=== PATIENT | female | born 1945 | race Caucasian/White ===

== ENCOUNTER 2018-09-20 09:46 | Inpatient (IN) | payer MEDICARE, OTHER ==
[2018-09-20] MEDS ORDERED: Sodium Chloride 0.9% 10 ML Syringe FLUSH PRN (10:23)
--- NOTE | 2018-09-20 10:27 | EDM.PDOC ---
ED HPI GENERAL MEDICAL PROBLEM - General Chief Complaint: Lower Extremity Injury/Pain Stated Complaint: LT LEG SWOLLEN Time Seen by Provider: 09/20/18 10:00 Source of Information: Reports: Patient History Limitations: Reports: No Limitations - History of Present Illness INITIAL COMMENTS - FREE TEXT/NARRATIVE: Patient is a 73-year-old female who presents the ED complaining of left leg swelling. Patient states she's noticed a swelling over the past few days. Has had some intermittent pain to the left calf. No recent trauma that precipitated this. She does carry a history of blood clots and is concerned she has a DVT. Last incident was between 3 and 5 years ago. Patient was admitted to the hospital for 3 days and bridged with Lovenox until warfarin level became therapeutic. She was on warfarin for one year and then was discontinued. States she did fall the first part of September but notes there is no residual discomfort. Denies any pain or tenderness to her pelvis or hip region. No pain to the left upper thigh, knee, or any bony tenderness to the lower extremity. She denies any chest pain, hemoptysis, shortness of breath. PMH: Parkinson's, macular degeneration, and hypertension. Current medications see list. Left Lower Leg Pain Score (Numeric/FACES): 5 - Related Data Allergies Allergy/AdvReac Type Severity Reaction Status Date / Time No Known Allergies Allergy Verified 09/20/18 09:55 Home Meds: Home Meds Carbidopa/Levodopa [Carbidopa-Levodopa 25-250] 10 - 100 mg PO Q4HR 01/07/16 [ History] Metoprolol Tartrate 25 mg PO DAILY 01/07/16 [History] amLODIPine [Norvasc] 10 mg PO DAILY 01/07/16 [History] rOPINIRole HCl [Ropinirole HCl] 0.5 mg PO BEDTIME 01/07/16 [History] Acetaminophen/Diphenhydramine [Tylenol Pm Ex-Strength Caplet] 25 - 500 mg PO BEDTIME 09/20/18 [History] Benztropine [Cogentin] 0.5 mg PO DAILY 09/20/18 [History] Cholecalciferol (Vitamin D3) [D3-2000] 2,000 units PO DAILY 09/20/18 [History] Cyanocobalamin (Vitamin B12) [Vitamin B12] 1 tab PO DAILY 09/20/18 [History] Dextran 70/Hypromellose [Artificial Tears] 1 drop OP Q4HR 09/20/18 [History] Glucosamine/D3/Boswellia Latrice [Osteo Bi-Flex Caplet] 1 tab PO DAILY 09/20/18 [ History] Multivitamin [Multivitamins] 1 tab PO DAILY 09/20/18 [History] [place]-3/DHA/Epa/Fish Oil [[place]-3 Fish Oil 1,000 MG Sfgl] 1,000 mg PO DAILY [History] Selegiline [Emsam] 5 mg PO BID 09/20/18 [History] Ubidecarenone [Co Q10] 60 mg PO DAILY 09/20/18 [History] Past Medical History HEENT History: Reports: Impaired Vision, Macular Degeneration Cardiovascular History: Reports: Hypertension Neurological History: Reports: Parkinson's - Past Surgical History Musculoskeletal Surgical History: Reports: Shoulder Surgery Social & Family History - Tobacco Use Smoking Status *Q: Former Smoker Used Tobacco, but Quit: Yes Month/Year Tobacco Last Used: 05/1989 - Caffeine Use Caffeine Use: Reports: None - Recreational Drug Use Recreational Drug Use: No Review of Systems - Review of Systems Review Of Systems: ROS reveals no pertinent complaints other than HPI. ED EXAM, GENERAL - Physical Exam Exam: See Below Exam Limited By: No Limitations General Appearance: Alert, WD/WN, No Apparent Distress Ears: Hearing Grossly Normal Nose: Normal Inspection Throat/Mouth: Normal Voice, No Airway Compromise Head: Atraumatic, Normocephalic Neck: Normal Inspection, Supple Respiratory/Chest: No Respiratory Distress, Lungs Clear, Normal Breath Sounds, No Accessory Muscle Use, Chest Non-Tender Cardiovascular: Normal Peripheral Pulses, Regular Rate, Rhythm, No Murmur ( obvious) Peripheral Pulses: 2+: Radial (L), Radial (R), Posterior Tibial (L), Posterior Tibial (R) GI/Abdominal: Normal Bowel Sounds, Soft, Non-Tender, No Organomegaly, No Distention Extremities: Other (Left leg is swollen in comparison to the right encompassing most of the leg. Posterior tibialis pulses intact. Difficult time palpating the dorsalis pedis and popliteal. Femoral pulses are intact. Skin is pink warm and dry. No pain with palpation of the extremity.) Neurological: Alert, Oriented, CN II-XII Intact, No Motor/Sensory Deficits Psychiatric: Normal Affect, Normal Mood Skin Exam: Warm, Dry, Intact, Normal Color, No Rash Course - Vital Signs Last Recorded V/S: Last Vital Signs Temp 97.0 F 09/20/18 09:55 Pulse 72 09/20/18 09:55 Resp 20 09/20/18 09:55 BP 99/87 09/20/18 09:55 Pulse Ox 97 09/20/18 09:55 - Orders/Labs/Meds Orders: Active Orders 24 hr Category Date Time Status Sodium Chloride 0.9% [Saline Flush] Med 09/20/18 10:23 Active 10 ml FLUSH ASDIRECTED PRN Peripheral IV Insertion Adult [OM.PC] Routine Oth 09/20/18 10:23 Ordered Medication Orders Amlodipine Besylate (Norvasc) 10 mg PO DAILY KARLEE Benztropine Mesylate (Cogentin) 0.5 mg PO DAILY KARLEE Carbidopa/Levodopa (Sinemet 25-250 Mg) tab PO Q4HR KARLEE Metoprolol Tartrate (Lopressor) 25 mg PO DAILY KARLEE Non-Formulary Medication (Multivitamin [Multivitamins]) 1 tab PO DAILY KARLEE Non-Formulary Medication (Ropinirole Hcl) 0.5 mg PO BEDTIME KARLEE Non-Formulary Medication (Selegiline [Emsam]) 5 mg PO BID KARLEE Non-Formulary Medication (Ubidecarenone [Co Q10]) 60 mg PO DAILY KARLEE Sodium Chloride (Saline Flush) 10 ml FLUSH ASDIRECTED PRN PRN Reason: Keep Vein Open Last Admin: 09/20/18 12:42 Dose: 10 ml Warfarin Sodium (Coumadin) 10 mg PO ONETIME ONE Stop: 09/20/18 12:42 Labs: Laboratory Tests 09/20/18 09/20/18 09/20/18 Range/Units 11:10 11:10 11:10 WBC 7.39 (3.98-10.04) K/mm3 RBC 3.83 L (3.98-5.22) M/mm3 Hgb 13.8 (11.2-15.7) gm/L Hct 38.8 (34.1-44.9) % MCV 101.3 H (79.4-94.8) fl MCH 36.0 H (25.6-32.2) pg MCHC 35.6 H (32.2-35.5) g/dl RDW Std Deviation 43.5 (36.4-46.3) fL Plt Count 213 (182-369) K/mm3 MPV 8.9 L (9.4-12.3) fl Neutrophils % (Manual) 70 H (40-60) % Band Neutrophils % 0 (0-10) % Lymphocytes % (Manual) 11 L (20-40) % Atypical Lymphs % 0 % Monocytes % (Manual) 16 H (2-10) % Eosinophils % (Manual) 3 (0.7-5.8) % Basophils % (Manual) 0 L (0.1-1.2) Platelet Estimate Adequate Macrocytosis 3+ marked RBC Morph Comment Not Reportable PT 10.0 (9.5-12.1) SECONDS INR < 0.93 APTT 27 (24-31) SECONDS Sodium 138 (136-145) mEq/L Potassium 4.1 (3.5-5.1) mEq/L Chloride 102 (98-107) mEq/L Carbon Dioxide 26 (21-32) mEq/L Anion Gap 14.1 (5-15) BUN 15 (7-18) mg/dL Creatinine 0.7 (0.55-1.02) mg/dL Est Cr Clr Drug Dosing 55.77 mL/min Estimated GFR (MDRD) > 60 (>60) mL/min BUN/Creatinine Ratio 21.4 H (14-18) Glucose 97 (83-115) mg/dL Calcium 9.4 (8.5-10.1) mg/dL Total Bilirubin 0.7 (0.2-1.0) mg/dL AST 16 (15-37) U/L ALT 16 (14-59) U/L Alkaline Phosphatase 80 (46-116) U/L C-Reactive Protein 1.7 H* (<1.0) mg/dL Total Protein 7.1 (6.4-8.2) g/dl Albumin 3.7 (3.4-5.0) g/dl Globulin 3.4 gm/dL Albumin/Globulin Ratio 1.1 (1-2) Meds: Medications Generic Name Dose Route Start Last Admin Trade Name Freq PRN Reason Stop Dose Admin Amlodipine Besylate 10 mg 09/21/18 09:00 Norvasc PO DAILY KARLEE Benztropine Mesylate 0.5 mg 09/21/18 09:00 Cogentin PO DAILY KARLEE Carbidopa/Levodopa tab 09/20/18 13:00 Sinemet 25-250 Mg PO Q4HR KARLEE Metoprolol Tartrate 25 mg 09/21/18 09:00 Lopressor PO DAILY KARLEE Non-Formulary Medication 1 tab 09/21/18 09:00 Multivitamin [Multivitamins] PO DAILY KARLEE Non-Formulary Medication 0.5 mg 09/20/18 21:00 Ropinirole Hcl PO BEDTIME KARLEE Non-Formulary Medication 5 mg 09/20/18 21:00 Selegiline [Emsam] PO BID KARLEE Non-Formulary Medication 60 mg 09/21/18 09:00 Ubidecarenone [Co Q10] PO DAILY KARLEE Sodium Chloride 10 ml 09/20/18 10:23 09/20/18 12:42 Saline Flush FLUSH 10 ml ASDIRECTED PRN Administration Keep Vein Open Warfarin Sodium 10 mg 09/20/18 12:41 Coumadin PO 09/20/18 12:42 ONETIME ONE Discontinued Medications Generic Name Dose Route Start Last Admin Trade Name Freq PRN Reason Stop Dose Admin Enoxaparin Sodium 60 mg 09/20/18 12:15 09/20/18 12:37 Lovenox SUBCUT 09/20/18 12:16 60 mg ONETIME ONE Administration - Re-Assessments/Exams Free Text/Narrative Re-Assessment/Exam: Vital signs are stable. Blood pressure 99/87, heart rate 72, O2 sats 97%. On examination patient does have some noticeable swelling to the left leg in comparison to the right. Minimal discomfort with palpation. Posterior tibialis pulses are intact. Skin is pink warm and dry. Initial labs and studies will include: CBC, chem 14, CRP, coag studies, and ultrasound of the left lower extremity. Ultrasound of the left lower extremity revealed extensive deep venous thrombosis within the left lower extremity. I did share the results of the ultrasound with the patient. I discussed treatment options. This would include the NOAC's and warfarin. Patient opted to be placed on warfarin since this can be reversed with vitamin K. She is concerned that with her Parkinson's and the history of frequent falls that she may have complications with the bleeding. I did advise her that there is a product called K-Centra that they can reverse the NOAC's. Patient voiced her understanding but requested placed on warfarin. I will order Lovenox 1 mg/kg. Will seek admission to the hospital. [address] Patel complex care nurse practitioner hospitalist and he has agreed to admit the patient. Departure - Departure Time of Disposition: 12:21 Disposition: Home, Self-Care 01 Condition: Good Clinical Impression: DVT (deep venous thrombosis) Qualifiers: DVT location: lower extremity Affected thrombotic vein of extremity: unspecified vein of extremity Chronicity: acute Laterality: left Qualified Code( s): I82.402 - Acute embolism and thrombosis of unspecified deep veins of left lower extremity - Discharge Information - My Orders Last 24 Hours: My Active Orders 09/20/18 10:23 Sodium Chloride 0.9% [Saline Flush] 10 ml FLUSH ASDIRECTED PRN Peripheral IV Insertion Adult [OM.PC] Routine - Assessment/Plan Last 24 Hours: My Active Orders 09/20/18 10:23 Sodium Chloride 0.9% [Saline Flush] 10 ml FLUSH ASDIRECTED PRN Peripheral IV Insertion Adult [OM.PC] Routine
--- NOTE | 2018-09-20 11:57 | US ---
Left lower extremity deep venous ultrasound: Duplex and color flow imaging was obtained of the left common femoral, proximal greater saphenous, superficial femoral, popliteal, posterior tibial and peroneal veins. Right common femoral vein was also evaluated. Left common femoral, superficial femoral, popliteal, posterior tibial and peroneal veins shows diffuse occluding thrombus. Right common femoral vein is patent. There is slight thrombus within the distal greater saphenous vein. Impression: 1. Extensive deep venous thrombosis within the left lower extremity. Diagnostic code #5
[2018-09-20] MEDS ORDERED: Enoxaparin 60 MG/0.6 ML Syringe SUBCUT ONE (12:15)
[2018-09-20] MEDS ORDERED: Carbidopa/Levodopa 25-250 MG Tab PO SCH (13:00)
[2018-09-20] MEDS ORDERED: Carbidopa/Levodopa 10-100 MG Tab PO ONE (14:00)
--- NOTE | 2018-09-20 14:06 | PCM.HP ---
H&P History of Present Illness - General Date of Service: 09/20/18 Admit Problem/Dx: Admission Diagnosis/Problem Admission Diagnosis/Problem DVT, Deep venous thrombosis of lower extremity - History of Present Illness Initial Comments - Free Text/Narative: 73 yo WF with h/o DVT, Parkinson's, HTN admitted after 2 day h/o left leg edema and tenderness, US showed LLE DVT. Admitted for further treatment. Left Lower Leg Pain Score (Numeric/FACES): 5 - Related Data Allergies/Adverse Reactions: Allergies Allergy/AdvReac Type Severity Reaction Status Date / Time sertraline [From Zoloft] Allergy Tachycardia Verified 09/20/18 13:31 Home Medications: Home Meds Carbidopa/Levodopa [Carbidopa-Levodopa 25-250] 10 - 100 mg PO Q4HR 01/07/16 [ History] Metoprolol Tartrate 25 mg PO DAILY 01/07/16 [History] amLODIPine [Norvasc] 10 mg PO DAILY 01/07/16 [History] rOPINIRole HCl [Ropinirole HCl] 0.5 mg PO BEDTIME 01/07/16 [History] Acetaminophen/Diphenhydramine [Tylenol Pm Ex-Strength Caplet] 25 - 500 mg PO BEDTIME 09/20/18 [History] Benztropine [Cogentin] 0.5 mg PO DAILY 09/20/18 [History] Cholecalciferol (Vitamin D3) [D3-2000] 2,000 units PO DAILY 09/20/18 [History] Cyanocobalamin (Vitamin B12) [Vitamin B12] 1 tab PO DAILY 09/20/18 [History] Dextran 70/Hypromellose [Artificial Tears] 1 drop OP Q4HR 09/20/18 [History] Glucosamine/D3/Boswellia Latrice [Osteo Bi-Flex Caplet] 1 tab PO DAILY 09/20/18 [ History] Multivitamin [Multivitamins] 1 tab PO DAILY 09/20/18 [History] [place]-3/DHA/Epa/Fish Oil [[place]-3 Fish Oil 1,000 MG Sfgl] 1,000 mg PO DAILY [History] Selegiline [Emsam] 5 mg PO BID 09/20/18 [History] Ubidecarenone [Co Q10] 60 mg PO DAILY 09/20/18 [History] Past Medical History HEENT History: Reports: Impaired Vision, Macular Degeneration Cardiovascular History: Reports: Hypertension Gastrointestinal History: Reports: GERD 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: 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: , Other (See Below) Other OB/BYN History: C section Neurological History: Reports: Parkinson's Other Neuro History: 14yrs - Infectious Disease History Infectious Disease History: Reports: Chicken Pox, Measles, Mumps - Past Surgical History Musculoskeletal Surgical History: Reports: Shoulder Surgery Social & Family History - Family History Family Medical History: Noncontributory - Tobacco Use Smoking Status *Q: Former Smoker Used Tobacco, but Quit: Yes Month/Year Tobacco Last Used: 05/1989 - Caffeine Use Caffeine Use: Reports: None - Recreational Drug Use Recreational Drug Use: No H&P Review of Systems - Review of Systems: Review Of Systems: See Below General: Denies: Fever, Chills, Malaise, Weakness, Decreased Appetite, Weight Loss HEENT: Denies: Dysphasia, Sinus Congestion Pulmonary: Denies: Shortness of Breath, Wheezing, Cough, Hemoptysis Cardiovascular: Denies: Chest Pain, Palpitations, Edema, Syncope Gastrointestinal: Denies: Abdominal Pain, Anorexia, Black Stool, Bloody Stool, Hematochezia, Melena Genitourinary: Denies: Dysuria, Frequency, Hematuria Musculoskeletal: Reports: Leg Pain Skin: Denies: Cyanosis, Jaundice Psychiatric: Denies: Confusion, Depression Neurological: Denies: Seizure, Syncope Hematologic/Lymphatic: Denies: Easy Bleeding, Easy Bruising Exam - Exam Exam: See Below - Vital Signs Vital Signs: Last Vital Signs Temp 97.0 F 09/20/18 09:55 Pulse 72 09/20/18 09:55 Resp 20 09/20/18 09:55 BP 99/87 09/20/18 09:55 Pulse Ox 97 09/20/18 09:55 Weight: 138 lb 8 oz - Exam Quality Assessment: DVT Prophylaxis General: Alert, Oriented, Cooperative HEENT: Conjunctiva Clear, EOMI, Hearing Intact Neck: Supple, Trachea Midline Lungs: Clear to Auscultation, Normal Respiratory Effort. No: Crackles Cardiovascular: Regular Rate, Regular Rhythm, Normal S1, Normal S2 GI/Abdominal Exam: Normal Bowel Sounds, Soft, Non-Tender Extremities: Pedal Edema, Joshua's Sign, Leg Pain, Increased Warmth Peripheral Pulses: 2+: Dorsalis Pedis (L), Dorsalis Pedis (R) Skin: Warm, Dry Neuro Extensive - Mental Status: Oriented x3, Normal Mood/Affect Neuro Extensive - Motor, Sensory, Reflexes: CN II-XII Intact, Tremor. No: Dysarthria, Motor/Sensory Deficits Psychiatric: No: Anxious, Suicidal Ideation - Patient Data Lab Results Last 24 hrs: Laboratory Results - last 24 hr 09/20/18 09/20/18 09/20/18 Range/Units 11:10 11:10 11:10 WBC 7.39 (3.98-10.04) K/mm3 RBC 3.83 L (3.98-5.22) M/mm3 Hgb 13.8 (11.2-15.7) gm/L Hct 38.8 (34.1-44.9) % MCV 101.3 H (79.4-94.8) fl MCH 36.0 H (25.6-32.2) pg MCHC 35.6 H (32.2-35.5) g/dl RDW Std Deviation 43.5 (36.4-46.3) fL Plt Count 213 (182-369) K/mm3 MPV 8.9 L (9.4-12.3) fl Neutrophils % (Manual) 70 H (40-60) % Band Neutrophils % 0 (0-10) % Lymphocytes % (Manual) 11 L (20-40) % Atypical Lymphs % 0 % Monocytes % (Manual) 16 H (2-10) % Eosinophils % (Manual) 3 (0.7-5.8) % Basophils % (Manual) 0 L (0.1-1.2) Platelet Estimate Adequate Macrocytosis 3+ marked RBC Morph Comment Not Reportable PT 10.0 (9.5-12.1) SECONDS INR < 0.93 APTT 27 (24-31) SECONDS Sodium 138 (136-145) mEq/L Potassium 4.1 (3.5-5.1) mEq/L Chloride 102 (98-107) mEq/L Carbon Dioxide 26 (21-32) mEq/L Anion Gap 14.1 (5-15) BUN 15 (7-18) mg/dL Creatinine 0.7 (0.55-1.02) mg/dL Est Cr Clr Drug Dosing 55.77 mL/min Estimated GFR (MDRD) > 60 (>60) mL/min BUN/Creatinine Ratio 21.4 H (14-18) Glucose 97 (83-115) mg/dL Calcium 9.4 (8.5-10.1) mg/dL Total Bilirubin 0.7 (0.2-1.0) mg/dL AST 16 (15-37) U/L ALT 16 (14-59) U/L Alkaline Phosphatase 80 (46-116) U/L C-Reactive Protein 1.7 H* (<1.0) mg/dL Total Protein 7.1 (6.4-8.2) g/dl Albumin 3.7 (3.4-5.0) g/dl Globulin 3.4 gm/dL Albumin/Globulin Ratio 1.1 (1-2) Result Diagrams: 09/20/18 11:10 09/20/18 11:10 - Problem List (1) DVT (deep venous thrombosis) SNOMED Code(s): 226925944 ICD Code: I82.409 - ACUTE EMBOLISM AND THOMBOS UNSP DEEP VN UNSP LOWER EXTREMITY Status: Acute Current Visit: Yes Qualifiers: DVT location: lower extremity Affected thrombotic vein of extremity: unspecified vein of extremity Chronicity: acute Laterality: left Qualified Code(s): I82.402 - Acute embolism and thrombosis of unspecified deep veins of left lower extremity Problem List Initiated/Reviewed/Updated: Yes Orders Last 24hrs: Active Orders 24 hr Category Date Time Status Admission Status [Patient Status] [ADT] Routine ADT 09/20/18 12:38 Active Ambulate [RC] ASDIRECTED Care 09/20/18 13:57 Active Oxygen Therapy [RC] PRN Care 09/20/18 13:57 Active VTE/DVT Education [RC] PER UNIT ROUTINE Care 09/20/18 13:57 Active Vital Signs [RC] Q4H Care 09/20/18 13:57 Active Heart Healthy Diet [DIET] Diet 09/20/18 Dinner Active CBC WITH AUTO DIFF [HEME] AM Lab 09/21/18 05:11 Ordered COMPREHENSIVE METABOLIC PN,CMP [CHEM] AM Lab 09/21/18 05:11 Ordered INR,PT,PROTHROMBIN TIME [COAG] AM Lab 09/21/18 05:11 Ordered MAGNESIUM [CHEM] AM Lab 09/21/18 05:00 Ordered PHOSPHORUS [CHEM] AM Lab 09/21/18 05:00 Ordered PTT,PARTIAL THROMBOPLSTIN TIME [COAG] AM Lab 09/21/18 05:11 Ordered TROPONIN I [CHEM] AM Lab 09/21/18 05:11 Ordered Benztropine [Cogentin] Med 09/21/18 09:00 Active 0.5 mg PO DAILY Carbidopa/Levodopa [Sinemet 10-100 mg] Med 09/20/18 14:00 Once 2 tab PO ONETIME ONE Carbidopa/Levodopa [Sinemet 25-250 mg] Med 09/20/18 13:00 Pending DOSE tab PO Q4HR Enoxaparin [Lovenox] Med 09/20/18 21:00 Ordered 60 mg SUBCUT Q12H Metoprolol Tartrate [Lopressor] Med 09/21/18 09:00 Pending 25 mg PO DAILY Multivitamins,Therapeutic [Thera] Med 09/21/18 09:00 Active 1 each PO DAILY Patient's Own Medication [Ptom] Med 09/20/18 21:00 Active 0 each PO BID Sodium Chloride 0.9% [Saline Flush] Med 09/20/18 10:23 Active 10 ml FLUSH ASDIRECTED PRN Warfarin [Coumadin] Med 09/20/18 18:00 Once 10 mg PO QPM ONE amLODIPine [Norvasc] Med 09/21/18 09:00 Active 10 mg PO DAILY rOPINIRole [Requip] Med 09/20/18 21:00 Active 0.5 mg PO BEDTIME Peripheral IV Insertion Adult [OM.PC] Routine Oth 09/20/18 10:23 Ordered Resuscitation Status Routine Resus Stat 09/20/18 13:57 Ordered Medication Orders Amlodipine Besylate (Norvasc) 10 mg PO DAILY KARLEE Benztropine Mesylate (Cogentin) 0.5 mg PO DAILY KARLEE Carbidopa/Levodopa (Sinemet 25-250 Mg) tab PO Q4HR KARLEE Carbidopa/Levodopa (Sinemet 10-100 Mg) 2 tab PO ONETIME ONE Stop: 09/20/18 14:01 Enoxaparin Sodium (Lovenox) 60 mg SUBCUT Q12H KARLEE Metoprolol Tartrate (Lopressor) 25 mg PO DAILY [facility] Multivitamins (Thera) 1 each PO DAILY KARLEE Selegiline [Emsam] 5 (Mg) 0 each PO BID KARLEE Ropinirole HCl (Requip) 0.5 mg PO BEDTIME KARLEE Sodium Chloride (Saline Flush) 10 ml FLUSH ASDIRECTED PRN PRN Reason: Keep Vein Open Last Admin: 09/20/18 12:42 Dose: 10 ml Warfarin Sodium (Coumadin) 10 mg PO QPM ONE Stop: 09/20/18 18:01 Assessment/Plan Comment:: 1. LMWH 1 mg/kg BID. 2. Warfarin, daily INR, goal 2-3.
[2018-09-20] MEDS: [UNRECOGNIZED DRUG - OTHER] PO SCH ×2 (15:22→22:01)
[2018-09-20] MEDS: Multivitamins with Minerals/Folic Acid/Lutein/Zeaxanth Tab PO SCH ×2 (17:12→17:15)
[2018-09-20] MEDS: Carbidopa/Levodopa 10-100 MG Tab PO SCH (17:13)
[2018-09-20] MEDS: Carboxymethylcellulose Sodium 1% Ophth Gel 15 ML Bottle EYEBOTH SCH ×2 (17:14→22:01)
[2018-09-20] MEDS ORDERED: Warfarin 10 MG Tab PO ONE (18:00)
[2018-09-20] MEDS: Metoprolol Tartrate 25 MG Tab PO SCH (18:55)
[2018-09-20] MEDS: Benztropine 1 MG Tab PO SCH (21:59)
[2018-09-20] MEDS: DIPHENHYDRAMINE PO SCH (22:00)
[2018-09-20] MEDS: ACETAMINOPHEN PO SCH (22:00)
[2018-09-20] MEDS: rOPINIRole 1 MG Tab PO SCH (22:00)
[2018-09-20] MEDS: Enoxaparin 60 MG/0.6 ML Syringe SUBCUT SCH (22:01)
[2018-09-20] MEDS: SELEGILINE 5 MG PO SCH (22:01)
[2018-09-21] MEDS: Carbidopa/Levodopa 10-100 MG Tab PO SCH ×6 (02:39→17:32)
[2018-09-21] MEDS: Carboxymethylcellulose Sodium 1% Ophth Gel 15 ML Bottle EYEBOTH SCH ×6 (02:39→21:11)
[2018-09-21] MEDS: Metoprolol Tartrate 25 MG Tab PO SCH ×2 (06:45→17:32)
[2018-09-21] MEDS: amLODIPine 10 MG Tab PO SCH ×2 (06:47→08:31)
--- NOTE | 2018-09-21 07:10 | PCM.PN ---
- General Info Date of Service: 09/21/18 Admission Dx/Problem (Free Text): Admission Diagnosis/Problem Admission Diagnosis/Problem DVT, Deep venous thrombosis of lower extremity Subjective Update: 09/20/18: 73 yo WF with h/o DVT, Parkinson's, HTN admitted after 2 day h/o left leg edema and tenderness, US showed LLE DVT. Admitted for further treatment. 09/21/18: In to see Chery. We discussed possible NOACs vs. Warfarin and she reported she would like to continue with warfarin. We also discussed her risk of falling and progressive nature of her Parkinson's disease. She agrees it has been getting worse but would like to remain home a long as possible. Will consult CM/SW for discharge planing and possible future services should they be needed. She has been somewhat unsteady on her feet at times 2/2 Parkinson's as well and will order PT/OT. Will also switch warfarin to pharmacy to dose. Her swelling has resolved along with her leg pain. She has no concerns at this time. No nursing concerns. Discharge is pending therapeutic INR. Due to hx/o past DVT she will likely require lifelong continued anticoagulation. Functional Status: Reports: Pain Controlled, Tolerating Diet, Ambulating, Urinating. Denies: New Symptoms - Review of Systems General: Reports: No Symptoms. Denies: Fever, Weakness, Fatigue, Malaise, Chills HEENT: Reports: No Symptoms. Denies: Headaches, Sore Throat Pulmonary: Reports: No Symptoms. Denies: Shortness of Breath, Cough, Wheezing Cardiovascular: Reports: No Symptoms. Denies: Chest Pain, Dyspnea on Exertion, Edema Gastrointestinal: Reports: Decreased Appetite ("Just not hungry" ). Denies: Abdominal Pain, Constipation, Diarrhea, Nausea, Vomiting Genitourinary: Reports: No Symptoms. Denies: Pain Musculoskeletal: Reports: No Symptoms. Denies: Leg Pain Skin: Reports: No Symptoms. Denies: Cyanosis Neurological: Reports: Pre-Existing Deficit, Tremors (2/2 parkinsons ), Difficulty Walking (2/2 parkinsons disease ), Gait Disturbance (2/2 parkinsons disease ). Denies: Confusion Psychiatric: Reports: No Symptoms - Patient Data Vitals - Most Recent: Last Vital Signs Temp 98.1 F 09/21/18 05:21 Pulse 73 09/21/18 06:45 Resp 18 09/21/18 05:21 BP 113/90 09/21/18 06:47 Pulse Ox 97 09/21/18 05:21 Weight - Most Recent: 135 lb I&O - Last 24 Hours: Intake & Output 09/20/18 09/21/18 09/21/18 22:59 06:59 14:59 Intake Total 0 400 Output Total 1100 950 Balance -1100 -550 Lab Results Last 24 Hours: Laboratory Results - last 24 hr 09/20/18 09/20/18 09/20/18 Range/Units 11:10 11:10 11:10 WBC 7.39 (3.98-10.04) K/mm3 RBC 3.83 L (3.98-5.22) M/mm3 Hgb 13.8 (11.2-15.7) gm/L Hct 38.8 (34.1-44.9) % MCV 101.3 H (79.4-94.8) fl MCH 36.0 H (25.6-32.2) pg MCHC 35.6 H (32.2-35.5) g/dl RDW Std Deviation 43.5 (36.4-46.3) fL Plt Count 213 (182-369) K/mm3 MPV 8.9 L (9.4-12.3) fl Neut % (Auto) (34.0-71.1) % Lymph % (Auto) (19.3-51.7) % [place] % (Auto) (4.7-12.5) % Eos % (Auto) (0.7-5.8) Baso % (Auto) (0.1-1.2) % Neut # (Auto) (1.56-6.13) K/mm3 Lymph # (Auto) (1.18-3.74) K/mm3 [place] # (Auto) (0.24-0.36) K/mm3 Eos # (Auto) (0.04-0.36) K/mm3 Baso # (Auto) (0.01-0.08) K/mm3 Neutrophils % (Manual) 70 H (40-60) % Band Neutrophils % 0 (0-10) % Lymphocytes % (Manual) 11 L (20-40) % Atypical Lymphs % 0 % Monocytes % (Manual) 16 H (2-10) % Eosinophils % (Manual) 3 (0.7-5.8) % Basophils % (Manual) 0 L (0.1-1.2) Manual Slide Review Platelet Estimate Adequate Macrocytosis 3+ marked RBC Morph Comment Not Reportable PT 10.0 (9.5-12.1) SECONDS INR < 0.93 APTT 27 (24-31) SECONDS Sodium 138 (136-145) mEq/L Potassium 4.1 (3.5-5.1) mEq/L Chloride 102 (98-107) mEq/L Carbon Dioxide 26 (21-32) mEq/L Anion Gap 14.1 (5-15) BUN 15 (7-18) mg/dL Creatinine 0.7 (0.55-1.02) mg/dL Est Cr Clr Drug Dosing 55.77 mL/min Estimated GFR (MDRD) > 60 (>60) mL/min BUN/Creatinine Ratio 21.4 H (14-18) Glucose 97 (83-115) mg/dL Calcium 9.4 (8.5-10.1) mg/dL Phosphorus (2.6-4.7) mg/dL Magnesium (1.8-2.4) mg/dl Total Bilirubin 0.7 (0.2-1.0) mg/dL AST 16 (15-37) U/L ALT 16 (14-59) U/L Alkaline Phosphatase 80 (46-116) U/L Troponin I (0.00-0.056) ng/mL C-Reactive Protein 1.7 H* (<1.0) mg/dL Total Protein 7.1 (6.4-8.2) g/dl Albumin 3.7 (3.4-5.0) g/dl Globulin 3.4 gm/dL Albumin/Globulin Ratio 1.1 (1-2) 09/21/18 09/21/18 09/21/18 Range/Units 04:50 04:50 04:50 WBC 5.51 (3.98-10.04) K/mm3 RBC 4.01 (3.98-5.22) M/mm3 Hgb 13.8 (11.2-15.7) gm/L Hct 40.8 (34.1-44.9) % MCV 101.7 H (79.4-94.8) fl MCH 34.4 H (25.6-32.2) pg MCHC 33.8 (32.2-35.5) g/dl RDW Std Deviation 43.3 (36.4-46.3) fL Plt Count 218 (182-369) K/mm3 MPV 9.3 L (9.4-12.3) fl Neut % (Auto) 64.1 (34.0-71.1) % Lymph % (Auto) 16.5 L (19.3-51.7) % [place] % (Auto) 15.4 H (4.7-12.5) % Eos % (Auto) 3.4 (0.7-5.8) Baso % (Auto) 0.4 (0.1-1.2) % Neut # (Auto) 3.53 (1.56-6.13) K/mm3 Lymph # (Auto) 0.91 L (1.18-3.74) K/mm3 [place] # (Auto) 0.85 H (0.24-0.36) K/mm3 Eos # (Auto) 0.19 (0.04-0.36) K/mm3 Baso # (Auto) 0.02 (0.01-0.08) K/mm3 Neutrophils % (Manual) (40-60) % Band Neutrophils % (0-10) % Lymphocytes % (Manual) (20-40) % Atypical Lymphs % % Monocytes % (Manual) (2-10) % Eosinophils % (Manual) (0.7-5.8) % Basophils % (Manual) (0.1-1.2) Manual Slide Review Abnormal smear Platelet Estimate Macrocytosis RBC Morph Comment PT 10.9 (9.5-12.1) SECONDS INR 1.00 APTT 34 H D (24-31) SECONDS Sodium (136-145) mEq/L Potassium (3.5-5.1) mEq/L Chloride (98-107) mEq/L Carbon Dioxide (21-32) mEq/L Anion Gap (5-15) BUN (7-18) mg/dL Creatinine (0.55-1.02) mg/dL Est Cr Clr Drug Dosing mL/min Estimated GFR (MDRD) (>60) mL/min BUN/Creatinine Ratio (14-18) Glucose (83-115) mg/dL Calcium (8.5-10.1) mg/dL Phosphorus 3.4 (2.6-4.7) mg/dL Magnesium 2.3 (1.8-2.4) mg/dl Total Bilirubin (0.2-1.0) mg/dL AST (15-37) U/L ALT (14-59) U/L Alkaline Phosphatase (46-116) U/L Troponin I (0.00-0.056) ng/mL C-Reactive Protein (<1.0) mg/dL Total Protein (6.4-8.2) g/dl Albumin (3.4-5.0) g/dl Globulin gm/dL Albumin/Globulin Ratio (1-2) 09/21/18 Range/Units 04:50 WBC (3.98-10.04) K/mm3 RBC (3.98-5.22) M/mm3 Hgb (11.2-15.7) gm/L Hct (34.1-44.9) % MCV (79.4-94.8) fl MCH (25.6-32.2) pg MCHC (32.2-35.5) g/dl RDW Std Deviation (36.4-46.3) fL Plt Count (182-369) K/mm3 MPV (9.4-12.3) fl Neut % (Auto) (34.0-71.1) % Lymph % (Auto) (19.3-51.7) % [place] % (Auto) (4.7-12.5) % Eos % (Auto) (0.7-5.8) Baso % (Auto) (0.1-1.2) % Neut # (Auto) (1.56-6.13) K/mm3 Lymph # (Auto) (1.18-3.74) K/mm3 [place] # (Auto) (0.24-0.36) K/mm3 Eos # (Auto) (0.04-0.36) K/mm3 Baso # (Auto) (0.01-0.08) K/mm3 Neutrophils % (Manual) (40-60) % Band Neutrophils % (0-10) % Lymphocytes % (Manual) (20-40) % Atypical Lymphs % % Monocytes % (Manual) (2-10) % Eosinophils % (Manual) (0.7-5.8) % Basophils % (Manual) (0.1-1.2) Manual Slide Review Platelet Estimate Macrocytosis RBC Morph Comment PT (9.5-12.1) SECONDS INR APTT (24-31) SECONDS Sodium 138 (136-145) mEq/L Potassium 4.1 (3.5-5.1) mEq/L Chloride 103 (98-107) mEq/L Carbon Dioxide 25 (21-32) mEq/L Anion Gap 14.1 (5-15) BUN 15 (7-18) mg/dL Creatinine 0.7 (0.55-1.02) mg/dL Est Cr Clr Drug Dosing 55.77 mL/min Estimated GFR (MDRD) > 60 (>60) mL/min BUN/Creatinine Ratio 21.4 H (14-18) Glucose 99 (83-115) mg/dL Calcium 9.1 (8.5-10.1) mg/dL Phosphorus (2.6-4.7) mg/dL Magnesium (1.8-2.4) mg/dl Total Bilirubin 0.7 (0.2-1.0) mg/dL AST 18 (15-37) U/L ALT 8 L (14-59) U/L Alkaline Phosphatase 80 (46-116) U/L Troponin I < 0.017 (0.00-0.056) ng/mL C-Reactive Protein (<1.0) mg/dL Total Protein 7.3 (6.4-8.2) g/dl Albumin 3.5 (3.4-5.0) g/dl Globulin 3.8 gm/dL Albumin/Globulin Ratio 0.9 L (1-2) Med Orders - Current: Current Medications Amlodipine Besylate (Norvasc) 10 mg PO DAILY [facility] Last Admin: 09/21/18 06:47 Dose: 10 mg Artificial Tears (Refresh Liquigel 1%) 0 ml EYEBOTH Q4HR [facility] Last Admin: 09/21/18 05:16 Dose: 1 drop Benztropine Mesylate (Cogentin) 0.5 mg PO BEDTIME [facility] Last Admin: 09/20/18 21:59 Dose: 0.5 mg Carbidopa/Levodopa (Sinemet 10-100 Mg) 2 tab PO 0500,0730,1100 [facility] Last Admin: 09/21/18 05:16 Dose: 2 tab Carbidopa/Levodopa (Sinemet 10-100 Mg) 2 tab PO 0200,1400,1700 [facility] Last Admin: 09/21/18 02:39 Dose: 2 tab Cholecalciferol (Vitamin D3) 2,000 units PO DAILY [facility] Cyanocobalamin (Vitamin B12) 1,000 mcg PO Q48H [facility] Enoxaparin Sodium (Lovenox) 60 mg SUBCUT Q12H [facility] Last Admin: 09/20/18 22:01 Dose: 60 mg Metoprolol Tartrate (Lopressor) 12.5 mg PO 0630,1830 [facility] Last Admin: 09/21/18 06:45 Dose: 12.5 mg Areds Ii Ptom 0 each PO DAILY [facility] Selegiline [Emsam] 5 (Mg Ptom) 0 each PO BID [facility] Last Admin: 09/20/18 22:01 Dose: Not Given Acetaminophen/Diphenhydramine Ptom 0 each PO BEDTIME [facility] Last Admin: 09/20/18 22:00 Dose: 1 each [place]-3/Dha/Epa/Fish (Oil Ptom) 0 each PO DAILY [facility] Osteo Sheath Ptom 0 each PO TID [facility] Last Admin: 09/20/18 22:01 Dose: Not Given Ubidecarenone [Co (Q10] Ptom) 0 each PO DAILY [facility] Ropinirole HCl (Requip) 1 mg PO BEDTIME [facility] Last Admin: 09/20/18 22:00 Dose: 1 mg Sodium Chloride (Saline Flush) 10 ml FLUSH ASDIRECTED PRN PRN Reason: Keep Vein Open Last Admin: 09/20/18 12:42 Dose: 10 ml Vit A/Vit C/Vit E/Selen/Cu/Zn/Lutei (Icaps Mv) 2 tab PO DAILY [facility] Last Admin: 09/20/18 17:15 Dose: Not Given Discontinued Medications Carbidopa/Levodopa (Sinemet 10-100 Mg) 2 tab PO ONETIME ONE Stop: 09/20/18 14:01 Last Admin: 09/20/18 14:14 Dose: 2 tab Enoxaparin Sodium (Lovenox) 60 mg SUBCUT ONETIME ONE Stop: 09/20/18 12:16 Last Admin: 09/20/18 12:37 Dose: 60 mg Non-Formulary Medication (Ubidecarenone [Co Q10]) 60 mg PO DAILY [facility] Warfarin Sodium (Coumadin) 10 mg PO QPM ONE Stop: 09/20/18 18:01 Last Admin: 09/20/18 17:13 Dose: 10 mg - Exam Quality Assessment: DVT Prophylaxis General: Alert, Oriented, Cooperative, No Acute Distress HEENT: Pupils Equal, Pupils Reactive, EOMI, Mucous Membr. Moist/[place] Neck: Supple, Trachea Midline, No JVD Lungs: Clear to Auscultation, Normal Respiratory Effort Cardiovascular: Regular Rate, Regular Rhythm GI/Abdominal Exam: Normal Bowel Sounds, Soft, Non-Tender, No Organomegaly, No Distention (Female) Exam: Deferred Back Exam: Normal Inspection, Full Range of Motion Extremities: Normal Inspection, Normal Range of Motion, Non-Tender, No Pedal Edema, Normal Capillary Refill. No: Pedal Edema, Leg Pain, Increased Warmth Peripheral Pulses: 3+: Radial (L), Radial (R), Dorsalis Pedis (L), Dorsalis Pedis (R) Skin: Warm, Dry, Intact Neurological: No New Focal Deficit Psy/Mental Status: Alert, Normal Affect, Normal Mood - Problem List & Annotations (1) DVT (deep venous thrombosis) SNOMED Code(s): 849601061 Code(s): I82.409 - ACUTE EMBOLISM AND THOMBOS UNSP DEEP VN UNSP LOWER EXTREMITY Status: Acute Current Visit: Yes Qualifiers: DVT location: lower extremity Affected thrombotic vein of extremity: unspecified vein of extremity Chronicity: acute Laterality: left Qualified Code(s): I82.402 - Acute embolism and thrombosis of unspecified deep veins of left lower extremity (2) Parkinsons disease SNOMED Code(s): 90788582 Code(s): G20 - PARKINSON'S DISEASE Status: Chronic Priority: Medium Current Visit: Yes (3) HTN (hypertension) SNOMED Code(s): 10654176 Code(s): I10 - ESSENTIAL (PRIMARY) HYPERTENSION Status: Chronic Priority : Medium Current Visit: Yes Qualifiers: Hypertension type: unspecified Qualified Code(s): I10 - Essential (primary ) hypertension - Problem List Review Problem List Initiated/Reviewed/Updated: Yes - Plan Plan:: 1. LMWH 1 mg/kg BID until INR therapeutic. 2. Warfarin, daily INR, goal 2-3. 3. CM/SW for discharge planning 4. PT/OT for discharge planning/strengthening/evaluation
[2018-09-21] MEDS: Cholecalciferol (Vitamin D3) 1,000 Unit Tab PO SCH (08:33)
[2018-09-21] MEDS: OMEGA PO SCH (08:35)
[2018-09-21] MEDS: DHA PO SCH (08:35)
[2018-09-21] MEDS: FISH OIL PO SCH (08:35)
[2018-09-21] MEDS: EPA PO SCH (08:35)
[2018-09-21] MEDS: [UNRECOGNIZED DRUG - OTHER] PO SCH ×3 (08:36→21:10)
[2018-09-21] MEDS: SELEGILINE 5 MG PO SCH ×2 (08:37→12:57)
[2018-09-21] MEDS: UBIDECARENONE PO SCH (08:38)
[2018-09-21] MEDS: AREDS II PO SCH (08:40)
[2018-09-21] MEDS ORDERED: UBIDECARENONE 60 MG PO SCH (09:00)
[2018-09-21] MEDS: Enoxaparin 60 MG/0.6 ML Syringe SUBCUT SCH ×2 (09:05→21:11)
[2018-09-21] MEDS ORDERED: Warfarin 2.5 MG Tab PO SCH (18:00)
[2018-09-21] MEDS: Benztropine 1 MG Tab PO SCH (22:14)
[2018-09-21] MEDS: DIPHENHYDRAMINE PO SCH (22:14)
[2018-09-21] MEDS: ACETAMINOPHEN PO SCH (22:14)
[2018-09-21] MEDS: rOPINIRole 1 MG Tab PO SCH (22:15)
[2018-09-22] MEDS: Carbidopa/Levodopa 10-100 MG Tab PO SCH ×6 (02:07→17:25)
[2018-09-22] MEDS: Carboxymethylcellulose Sodium 1% Ophth Gel 15 ML Bottle EYEBOTH SCH ×6 (02:07→21:13)
[2018-09-22] MEDS: Metoprolol Tartrate 25 MG Tab PO SCH ×2 (06:29→17:30)
[2018-09-22] MEDS: amLODIPine 10 MG Tab PO SCH ×2 (06:33→07:37)
--- NOTE | 2018-09-22 06:50 | PCM.PN ---
- General Info Date of Service: 09/22/18 Admission Dx/Problem (Free Text): Admission Diagnosis/Problem Admission Diagnosis/Problem DVT, Deep venous thrombosis of lower extremity Subjective Update: In to see Chery. She continues to do well with no concerns. We discussed her labs and plan for care. Daughter is in room and all questions were answered. INR has increased to 1.62 today. Pharmacy continues to dose warfarin. No nursing concerns. Functional Status: Reports: Pain Controlled, Tolerating Diet, Ambulating, Urinating. Denies: New Symptoms - Review of Systems General: Reports: No Symptoms. Denies: Fever, Weakness, Fatigue, Malaise, Chills HEENT: Reports: No Symptoms. Denies: Contact Lenses, Ear Pain, Eye Pain, Headaches, Sore Throat Pulmonary: Reports: No Symptoms. Denies: Shortness of Breath, Pleuritic Chest Pain, Cough, Sputum, Wheezing Cardiovascular: Reports: No Symptoms. Denies: Chest Pain, Palpitations, Dyspnea on Exertion, Edema, Lightheadedness Gastrointestinal: Reports: No Symptoms. Denies: Abdominal Pain, Constipation, Decreased Appetite, Diarrhea, Nausea, Vomiting Genitourinary: Reports: No Symptoms. Denies: Pain Musculoskeletal: Reports: No Symptoms. Denies: Leg Pain Skin: Reports: No Symptoms. Denies: Cyanosis Neurological: Reports: Pre-Existing Deficit, Tremors (2/2 parkinsons ), Difficulty Walking (2/2 parkinsons), Gait Disturbance (2/2 parkinsons). Denies : Confusion, Weakness Psychiatric: Reports: No Symptoms - Patient Data Vitals - Most Recent: Last Vital Signs Temp 97.7 F 09/22/18 05:19 Pulse 81 09/22/18 06:29 Resp 24 H 09/22/18 05:19 BP 132/67 09/22/18 06:33 Pulse Ox 96 09/22/18 05:19 Weight - Most Recent: 134 lb 12.8 oz I&O - Last 24 Hours: Intake & Output 09/21/18 09/21/18 09/22/18 14:59 22:59 06:59 Intake Total 180 1520 600 Output Total 1075 1000 Balance 180 445 -400 Lab Results Last 24 Hours: Laboratory Results - last 24 hr 09/22/18 09/22/18 09/22/18 Range/Units 05:25 05:25 05:25 WBC 6.10 (3.98-10.04) K/mm3 RBC 3.99 (3.98-5.22) M/mm3 Hgb 13.6 (11.2-15.7) gm/L Hct 40.6 (34.1-44.9) % MCV 101.8 H (79.4-94.8) fl MCH 34.1 H (25.6-32.2) pg MCHC 33.5 (32.2-35.5) g/dl RDW Std Deviation 43.3 (36.4-46.3) fL Plt Count 274 (182-369) K/mm3 MPV 9.1 L (9.4-12.3) fl Neut % (Auto) 60.0 (34.0-71.1) % Lymph % (Auto) 21.1 (19.3-51.7) % [place] % (Auto) 14.4 H (4.7-12.5) % Eos % (Auto) 3.6 (0.7-5.8) Baso % (Auto) 0.7 (0.1-1.2) % Neut # (Auto) 3.66 (1.56-6.13) K/mm3 Lymph # (Auto) 1.29 (1.18-3.74) K/mm3 [place] # (Auto) 0.88 H (0.24-0.36) K/mm3 Eos # (Auto) 0.22 (0.04-0.36) K/mm3 Baso # (Auto) 0.04 (0.01-0.08) K/mm3 PT 17.5 H D (9.5-12.1) SECONDS INR 1.62 Sodium 139 (136-145) mEq/L Potassium 4.3 (3.5-5.1) mEq/L Chloride 104 (98-107) mEq/L Carbon Dioxide 24 (21-32) mEq/L Anion Gap 15.3 H (5-15) BUN 18 (7-18) mg/dL Creatinine 0.6 (0.55-1.02) mg/dL Est Cr Clr Drug Dosing 65.06 mL/min Estimated GFR (MDRD) > 60 (>60) mL/min BUN/Creatinine Ratio 30.0 H (14-18) Glucose 99 (83-115) mg/dL Calcium 9.1 (8.5-10.1) mg/dL Magnesium 2.3 (1.8-2.4) mg/dl Med Orders - Current: Current Medications Amlodipine Besylate (Norvasc) 10 mg PO DAILY@0630 [facility] Artificial Tears (Refresh Liquigel 1%) 0 ml EYEBOTH Q4HR [facility] Last Admin: 09/22/18 05:03 Dose: 1 drop Benztropine Mesylate (Cogentin) 0.5 mg PO BEDTIME [facility] Last Admin: 09/21/18 22:14 Dose: 0.5 mg Carbidopa/Levodopa (Sinemet 10-100 Mg) 2 tab PO 0500,0730,1100 [facility] Last Admin: 09/22/18 05:03 Dose: 2 tab Carbidopa/Levodopa (Sinemet 10-100 Mg) 2 tab PO 0200,1400,1700 [facility] Last Admin: 09/22/18 02:07 Dose: 2 tab Cholecalciferol (Vitamin D3) 2,000 units PO DAILY [facility] Last Admin: 09/21/18 08:33 Dose: 2,000 units Cyanocobalamin (Vitamin B12) 1,000 mcg PO Q48H [facility] Enoxaparin Sodium (Lovenox) 60 mg SUBCUT Q12H [facility] Last Admin: 09/21/18 21:11 Dose: 60 mg Metoprolol Tartrate (Lopressor) 12.5 mg PO 0630,1830 [facility] Last Admin: 09/22/18 06:29 Dose: 12.5 mg Areds Ii Ptom 0 each PO DAILY [facility] Last Admin: 09/21/18 08:40 Dose: 2 each Acetaminophen/Diphenhydramine Ptom 0 each PO BEDTIME [facility] Last Admin: 09/21/18 22:14 Dose: 1 each [place]-3/Dha/Epa/Fish (Oil Ptom) 0 each PO DAILY [facility] Last Admin: 09/21/18 08:35 Dose: 1 each Osteo Sheath Ptom 0 each PO TID [facility] Last Admin: 09/21/18 21:10 Dose: 1 each Ubidecarenone [Co (Q10] Ptom) 0 each PO DAILY [facility] Last Admin: 09/21/18 08:38 Dose: 1 each Selegiline [Emsam] 5 (Mg Ptom) 0 each PO 0900,1200 [facility] Last Admin: 09/21/18 12:57 Dose: 0.5 each Ropinirole HCl (Requip) 1 mg PO BEDTIME [facility] Last Admin: 09/21/18 22:15 Dose: 1 mg Sodium Chloride (Saline Flush) 10 ml FLUSH ASDIRECTED PRN PRN Reason: Keep Vein Open Last Admin: 09/20/18 12:42 Dose: 10 ml Warfarin Sodium (Pharmacy To Dose - Warfarin) 0 dose .XX ASDIRECTED PRN PRN Reason: RX TO DOSE WARFARIN Discontinued Medications Amlodipine Besylate (Norvasc) 10 mg PO DAILY [facility] Last Admin: 09/22/18 06:33 Dose: 10 mg Carbidopa/Levodopa (Sinemet 10-100 Mg) 2 tab PO ONETIME ONE Stop: 09/20/18 14:01 Last Admin: 09/20/18 14:14 Dose: 2 tab Enoxaparin Sodium (Lovenox) 60 mg SUBCUT ONETIME ONE Stop: 09/20/18 12:16 Last Admin: 09/20/18 12:37 Dose: 60 mg Non-Formulary Medication (Ubidecarenone [Co Q10]) 60 mg PO DAILY [facility] Selegiline [Emsam] 5 (Mg Ptom) 0 each PO BID [facility] Last Admin: 09/21/18 08:37 Dose: 0.5 each Vit A/Vit C/Vit E/Selen/Cu/Zn/Lutei (Icaps Mv) 2 tab PO DAILY [facility] Last Admin: 09/20/18 17:15 Dose: Not Given Warfarin Sodium (Coumadin) 10 mg PO QPM ONE Stop: 09/20/18 18:01 Last Admin: 09/20/18 17:13 Dose: 10 mg Warfarin Sodium (Coumadin) 2.5 mg PO QPM [facility] Stop: 09/21/18 18:01 Last Admin: 09/21/18 17:32 Dose: 2.5 mg - Exam Quality Assessment: DVT Prophylaxis General: Alert, Oriented, Cooperative, No Acute Distress HEENT: Pupils Equal, Pupils Reactive, EOMI, Mucous Membr. Moist/[place] Neck: Supple, Trachea Midline Lungs: Clear to Auscultation, Normal Respiratory Effort Cardiovascular: Regular Rate, Regular Rhythm GI/Abdominal Exam: Normal Bowel Sounds, Soft, Non-Tender, No Distention, No Abnormal Bruit (Female) Exam: Deferred Back Exam: Normal Inspection, Full Range of Motion Extremities: Normal Inspection, Normal Range of Motion, Non-Tender, No Pedal Edema, Normal Capillary Refill Peripheral Pulses: 2+: Radial (L), Radial (R), Dorsalis Pedis (L), Dorsalis Pedis (R) Skin: Warm, Dry, Intact Neurological: No New Focal Deficit, Normal Speech, Other (significant tremor ). No: Normal Gait Psy/Mental Status: Alert, Normal Affect, Normal Mood - Problem List & Annotations (1) DVT (deep venous thrombosis) SNOMED Code(s): 525594159 Code(s): I82.409 - ACUTE EMBOLISM AND THOMBOS UNSP DEEP VN UNSP LOWER EXTREMITY Status: Acute Current Visit: Yes Qualifiers: DVT location: lower extremity Affected thrombotic vein of extremity: unspecified vein of extremity Chronicity: acute Laterality: left Qualified Code(s): I82.402 - Acute embolism and thrombosis of unspecified deep veins of left lower extremity (2) Parkinsons disease SNOMED Code(s): 70474103 Code(s): G20 - PARKINSON'S DISEASE Status: Chronic Priority: Medium Current Visit: Yes (3) HTN (hypertension) SNOMED Code(s): 98576283 Code(s): I10 - ESSENTIAL (PRIMARY) HYPERTENSION Status: Chronic Priority : Medium Current Visit: Yes Qualifiers: Hypertension type: unspecified Qualified Code(s): I10 - Essential (primary ) hypertension - Problem List Review Problem List Initiated/Reviewed/Updated: Yes - My Orders Last 24 Hours: My Active Orders 09/21/18 07:30 Pharmacy to Dose - Warfarin 0 dose .XX ASDIRECTED PRN 09/21/18 11:27 Consult to Case Management/Cell Tuber Hand [CONS] Routine Consult to Spiritual Care [CONS] Routine 09/21/18 11:29 Antiembolic Devices [RC] BID CHRIS Hose [Antiembolic Hose] [OM.PC] Routine 09/23/18 05:11 BASIC METABOLIC PANEL,BMP [CHEM] AM CBC WITH AUTO DIFF [HEME] AM INR,PT,PROTHROMBIN TIME [COAG] AM MAGNESIUM [CHEM] AM 09/24/18 05:11 BASIC METABOLIC PANEL,BMP [CHEM] AM CBC WITH AUTO DIFF [HEME] AM INR,PT,PROTHROMBIN TIME [COAG] AM MAGNESIUM [CHEM] AM 09/25/18 05:11 BASIC METABOLIC PANEL,BMP [CHEM] AM CBC WITH AUTO DIFF [HEME] AM INR,PT,PROTHROMBIN TIME [COAG] AM MAGNESIUM [CHEM] AM 09/26/18 05:11 INR,PT,PROTHROMBIN TIME [COAG] AM - Plan Plan:: 1. LMWH 1 mg/kg BID until INR therapeutic. 2. Warfarin, daily INR, goal 2-3. 3. CM/SW for discharge planning 4. PT/OT for discharge planning/strengthening/evaluation
[2018-09-22] MEDS: SELEGILINE 5 MG PO SCH ×2 (08:25→11:09)
[2018-09-22] MEDS: DHA PO SCH ×2 (08:25→08:34)
[2018-09-22] MEDS: [UNRECOGNIZED DRUG - OTHER] PO SCH ×3 (08:25→21:14)
[2018-09-22] MEDS: FISH OIL PO SCH ×2 (08:25→08:34)
[2018-09-22] MEDS: OMEGA PO SCH ×2 (08:25→08:34)
[2018-09-22] MEDS: AREDS II PO SCH (08:25)
[2018-09-22] MEDS: EPA PO SCH ×2 (08:25→08:34)
[2018-09-22] MEDS: Cholecalciferol (Vitamin D3) 1,000 Unit Tab PO SCH (08:27)
[2018-09-22] MEDS: UBIDECARENONE PO SCH (08:27)
[2018-09-22] MEDS ORDERED: Cyanocobalamin (Vitamin B12) 1,000 MCG Tab PO SCH (09:00)
[2018-09-22] MEDS: Enoxaparin 60 MG/0.6 ML Syringe SUBCUT SCH ×2 (10:56→21:13)
[2018-09-22] MEDS ORDERED: Warfarin 2.5 MG Tab PO SCH (18:00)
[2018-09-22] MEDS: Benztropine 1 MG Tab PO SCH (21:13)
[2018-09-22] MEDS: ACETAMINOPHEN PO SCH (21:13)
[2018-09-22] MEDS: rOPINIRole 1 MG Tab PO SCH (21:13)
[2018-09-22] MEDS: DIPHENHYDRAMINE PO SCH (21:13)
[2018-09-23] MEDS: Acetaminophen 325 MG Tab PO PRN ×2 (00:02→07:44)
[2018-09-23] MEDS: Carboxymethylcellulose Sodium 1% Ophth Gel 15 ML Bottle EYEBOTH SCH ×3 (00:02→08:32)
[2018-09-23] MEDS: Carbidopa/Levodopa 10-100 MG Tab PO SCH ×4 (02:06→10:54)
[2018-09-23] MEDS: Metoprolol Tartrate 25 MG Tab PO SCH (05:55)
[2018-09-23] MEDS: amLODIPine 10 MG Tab PO SCH (05:55)
--- NOTE | 2018-09-23 07:15 | PCM.DCSUM1 ---
Discharge Summary - Hospital Course HPI Initial Comments: 73 yo WF with h/o DVT, Parkinson's, HTN admitted after 2 day h/o left leg edema and tenderness, US showed LLE DVT. Admitted for further treatment. Diagnosis: Stroke: No - Discharge Data Discharge Date: 09/23/18 (Admit date: 09/20/18) Discharge Disposition: Home, Self-Care 01 Condition: Good - Discharge Diagnosis/Problem(s) (1) DVT (deep venous thrombosis) SNOMED Code(s): 635931531 ICD Code: I82.409 - ACUTE EMBOLISM AND THOMBOS UNSP DEEP VN UNSP LOWER EXTREMITY Status: Acute Current Visit: Yes Qualifiers: DVT location: lower extremity Affected thrombotic vein of extremity: unspecified vein of extremity Chronicity: acute Laterality: left Qualified Code(s): I82.402 - Acute embolism and thrombosis of unspecified deep veins of left lower extremity (2) Parkinsons disease SNOMED Code(s): 30686838 ICD Code: G20 - PARKINSON'S DISEASE Status: Chronic Priority: Medium Current Visit: Yes (3) HTN (hypertension) SNOMED Code(s): 04561277 ICD Code: I10 - ESSENTIAL (PRIMARY) HYPERTENSION Status: Chronic Priority : Medium Current Visit: Yes Qualifiers: Hypertension type: unspecified Qualified Code(s): I10 - Essential (primary ) hypertension - Patient Summary/Data Consults: Consultations 09/21/18 10:23 Consult to Physical Therapy [PT Evaluation and Treatment] [CONS] Routine 09/21/18 10:26 Consult to Occupational Therapy [OT Evaluation and Treatment] [CONS] Routine 09/21/18 11:27 Consult to Case Management/Objective C Developer [CONS] Routine Consult to Spiritual Care [CONS] Routine Labs Pending at D/C: None Recommended Follow-up Testing/Procedures: Re-check INR on 09/25/18 and 06/30/[address] [facility] with results to PCP. Pharmacy will also monitor and adjust as needed. Follow-up with PCP early to middle of next week. Hospital Course: Chery presented to our ED on 09/20/18 with left leg edema and pain. Ultrasound was obtained and did confirm a significant DVT in the left leg. Discussion was had over anticoagulants and ultimately the patient decided on warfarin. She does have Parkinson's with significant tremor and there are concerns over falling. She was advised to ensure that she has no rugs and minimize trip hazards at her home. She was admitted to the hospital and monitored. Warfarin was initiated with a 10 mg initial dose followed by 2.5 mg daily dose. This was bridged with 60 mg or 1 mg/kg Lovenox twice a day. She did work with PT/OT who recommended continuation of outpatient services. Case management was consulted to discuss discharge planning. Arrangements were made for initiation of the "big and loud" program with therapy after discharge. She was also advised of potential services as her Parkinson's will continue to worsen. She is aware of this prognosis and remains very active. Her left leg edema did resolve during her stay, along with her leg pain. Today, 09/23/18, her INR did reach therapeutic range with a goal of 2-3. It was 2.08. There are concerns this may continue to climb and she has had a significant increase the past 2 days. Discussed plans with pharmacy and recommendation was for repeat INR on 09/25/18, and 09/27/18. Unfortunately it is weekend and many clinics are closed. Plan will be for her to come to our facility in [place] on those days and have her labs drawn. Pharmacy will watch for these results and adjust as needed. INR results will also be forwarded to her primary care provider. She did report this will not be a problem as her can bring her. She'll need follow-up with her primary care provider early to middle of next week. Report was called to her PCP. Prior to discharge she was noted to have bilateral groin pain right in the creases. She reported no change in bowel habits or bowel symptoms and no urinary symptoms. She believes it may be from working with PT and OT as she has been working quite hard. Pelvic x-ray was obtained and noted degenerative change in the bilateral SI joints as well as osteopenia. These results were communicated with the patient. She has no concerns over discharging today. PCP was informed of this finding and will follow-up with her on this. We did discuss what to do should symptoms develop, such as bleeding, worsening abdominal pain, stroke symptoms, falls, etc. This is her second episode of DVT and she will likely need long-term anticoagulation. All home medications were continued. PT and OT did recommend she continue to use a walker at home. She will be discharged today on continued 2.5 mg daily warfarin, with dosing subject to change based on future INR results. - Patient Instructions Diet: Heart Healthy Diet Activity: As Tolerated Driving: Do Not Drive Notify Provider of: Fever, Increased Pain, Nausea and/or Vomiting Other/Special Instructions: Follow-up with your primary care provider early to middle next week. Recheck INR at [facility] here in [place] on and 09/27/18. Come to the Emergency room enterance and tell them you are here for a lab draw. Pharmacy will be watching for your results and contact you if changes are needed. Please come in the morning both days. Be very careful with falls. Remove trip hazards like rugs, etc. from your house. Should you notice any uncontrollible bleeding, significant bruising, or significant pain call 911 or report to the closest Emergency Room. Continue to use a walker as directed. Continue PT/OT outpatient as directed. Should symtpoms return or worsen, contact your primary care provider or return to the Emergency Department. - Discharge Plan *PRESCRIPTION DRUG MONITORING PROGRAM REVIEWED*: No *COPY OF PRESCRIPTION DRUG MONITORING REPORT IN PATIENT NAFISA: No Prescriptions/Med Rec: Warfarin [Coumadin] 2.5 mg PO DAILY #15 tab Home Medications: Home Meds Metoprolol Tartrate 12.5 mg PO BID 01/07/16 [History] amLODIPine [Norvasc] 10 mg PO DAILY 01/07/16 [History] rOPINIRole HCl [Ropinirole HCl] 1 mg PO BEDTIME 01/07/16 [History] Acetaminophen/Diphenhydramine [Tylenol Pm Ex-Strength Caplet] 25 - 500 mg PO BEDTIME 09/20/18 [History] Areds Ii. 2 tab PO DAILY 09/20/18 [History] Benztropine [Cogentin] 0.5 mg PO BEDTIME 09/20/18 [History] Carbidopa/Levodopa [Carbidopa-Levo 10-100 mg Odt] 20 - 200 mg PO 6XDAY 09/20/18 [History] Cholecalciferol (Vitamin D3) [D3-2000] 2,000 units PO DAILY 09/20/18 [History] Cyanocobalamin (Vitamin B12) [Vitamin B12] 1 tab PO ASDIRECTED 09/20/18 [History ] Dextran 70/Hypromellose [Artificial Tears] 1 drop OP Q4HR 09/20/18 [History] [place]-3/DHA/Epa/Fish Oil [[place]-3 Fish Oil 1,000 MG Sfgl] 2,000 mg PO DAILY [History] Osteo Sheath. 1 tab PO TID 09/20/18 [History] Selegiline [Emsam] 2.5 mg PO BID 09/20/18 [History] Ubidecarenone [Co Q10] 60 mg PO DAILY 09/20/18 [History] Warfarin [Coumadin] 2.5 mg PO DAILY #15 tab 09/23/18 [Rx] Oxygen Therapy Mode: Room Air Patient Handouts: Bleeding Precautions When on Anticoagulant Therapy, Adult, Vitamin K Foods and Warfarin, Deep Vein Thrombosis Referrals: Mala Swenson PA-C [Primary Care Provider] - 10/01/18 10:30 am (Please follow-up with your primary care doctor, Mala Swenson PA-C, on ThursdayOctober 01 at 1030am. ) - Discharge Summary/Plan Comment DC Time >30 min.: Yes (45 minutes ) - General Info Date of Service: 09/23/18 Admission Dx/Problem (Free Text: Admission Diagnosis/Problem Admission Diagnosis/Problem DVT, Deep venous thrombosis of lower extremity Subjective Update: In to see Chery. We discussed her progress and how her INR has reached therapeutic range. Discussed her INR with pharmacy and how to check it with the weekend. She can have it drawn here and pharmacy will watch for it and adjust as needed. Chery reports some bilateral groin pain which she states is probably from working with PT/OT. Pelvic X-ray obtained and reviewed with Dr. Olson with no concerns noted. No bowel change or urinary symptoms. Labs continue to otherwise look good. She has no other concerns. She will be discharged today. Functional Status: Reports: Pain Controlled, Tolerating Diet, Ambulating, Urinating. Denies: New Symptoms - Review of Systems General: Reports: No Symptoms. Denies: Fever, Weakness, Fatigue, Malaise, Chills HEENT: Reports: No Symptoms. Denies: Headaches, Sore Throat Pulmonary: Reports: No Symptoms. Denies: Shortness of Breath, Cough, Sputum, Wheezing Cardiovascular: Reports: No Symptoms. Denies: Chest Pain, Palpitations, Dyspnea on Exertion, Edema, Lightheadedness Gastrointestinal: Reports: Abdominal Pain (Mild bilateral abdominal pain in groin folds. ), Flatus. Denies: Constipation, Diarrhea, Hematochezia, Melena, Nausea, Vomiting Genitourinary: Reports: No Symptoms. Denies: Dysuria, Burning, Pain, Flank Pain Musculoskeletal: Reports: No Symptoms Skin: Reports: No Symptoms. Denies: Cyanosis Neurological: Reports: Pre-Existing Deficit, Tremors (2/2 parkinsons ), Difficulty Walking (2/2 parkinsons), Gait Disturbance (2/2 parkinsons ). Denies : Confusion, Headache, Trouble Speaking, Change in Speech Psychiatric: Reports: No Symptoms - Patient Data Vitals - Most Recent: Last Vital Signs Temp 97.0 F 09/23/18 05:25 Pulse 81 09/23/18 05:55 Resp 20 09/23/18 05:25 BP 120/98 H 09/23/18 05:55 Pulse Ox 96 09/23/18 05:25 Weight - Most Recent: 134 lb 6.4 oz I&O - Last 24 hours: Intake & Output 09/22/18 09/23/18 09/23/18 22:59 06:59 14:59 Intake Total 1520 500 Output Total 1400 1550 Balance 120 -1050 Lab Results - Last 24 hrs: Laboratory Results - last 24 hr 09/23/18 09/23/18 09/23/18 Range/Units 04:55 04:55 04:55 WBC 5.84 (3.98-10.04) K/mm3 RBC 3.94 L (3.98-5.22) M/mm3 Hgb 13.5 (11.2-15.7) gm/L Hct 40.3 (34.1-44.9) % MCV 102.3 H (79.4-94.8) fl MCH 34.3 H (25.6-32.2) pg MCHC 33.5 (32.2-35.5) g/dl RDW Std Deviation 44.2 (36.4-46.3) fL Plt Count 290 (182-369) K/mm3 MPV 9.2 L (9.4-12.3) fl Neut % (Auto) 63.1 (34.0-71.1) % Lymph % (Auto) 18.0 L (19.3-51.7) % [place] % (Auto) 14.9 H (4.7-12.5) % Eos % (Auto) 3.3 (0.7-5.8) Baso % (Auto) 0.5 (0.1-1.2) % Neut # (Auto) 3.69 (1.56-6.13) K/mm3 Lymph # (Auto) 1.05 L (1.18-3.74) K/mm3 [place] # (Auto) 0.87 H (0.24-0.36) K/mm3 Eos # (Auto) 0.19 (0.04-0.36) K/mm3 Baso # (Auto) 0.03 (0.01-0.08) K/mm3 PT 22.4 H (9.5-12.1) SECONDS INR 2.08 Sodium 138 (136-145) mEq/L Potassium 4.6 (3.5-5.1) mEq/L Chloride 102 (98-107) mEq/L Carbon Dioxide 26 (21-32) mEq/L Anion Gap 14.6 (5-15) BUN 12 (7-18) mg/dL Creatinine 0.6 (0.55-1.02) mg/dL Est Cr Clr Drug Dosing 65.06 mL/min Estimated GFR (MDRD) > 60 (>60) mL/min BUN/Creatinine Ratio 20.0 H (14-18) Glucose 96 (83-115) mg/dL Calcium 9.2 (8.5-10.1) mg/dL Magnesium 2.2 (1.8-2.4) mg/dl Med Orders - Current: Current Medications Acetaminophen (Tylenol) 650 mg PO Q4H PRN PRN Reason: Pain/Fever Last Admin: 09/23/18 00:02 Dose: 650 mg Amlodipine Besylate (Norvasc) 10 mg PO DAILY@0630 [facility] Last Admin: 09/23/18 05:55 Dose: 10 mg Artificial Tears (Refresh Liquigel 1%) 0 ml EYEBOTH Q4HR [facility] Last Admin: 09/23/18 05:54 Dose: 1 drop Benztropine Mesylate (Cogentin) 0.5 mg PO BEDTIME [facility] Last Admin: 09/22/18 21:13 Dose: 0.5 mg Carbidopa/Levodopa (Sinemet 10-100 Mg) 2 tab PO 0500,0730,1100 [facility] Last Admin: 09/23/18 05:58 Dose: 2 tab Carbidopa/Levodopa (Sinemet 10-100 Mg) 2 tab PO 0200,1400,1700 [facility] Last Admin: 09/23/18 02:06 Dose: 2 tab Cholecalciferol (Vitamin D3) 2,000 units PO DAILY [facility] Last Admin: 09/22/18 08:27 Dose: 2,000 units Cyanocobalamin (Vitamin B12) 1,000 mcg PO Q48H [facility] Last Admin: 09/22/18 08:27 Dose: 1,000 mcg Metoprolol Tartrate (Lopressor) 12.5 mg PO 0630,1830 [facility] Last Admin: 09/23/18 05:55 Dose: 12.5 mg Areds Ii Ptom 0 each PO DAILY [facility] Last Admin: 09/22/18 08:25 Dose: 2 each Acetaminophen/Diphenhydramine Ptom 0 each PO BEDTIME [facility] Last Admin: 09/22/18 21:13 Dose: 1 each [place]-3/Dha/Epa/Fish (Oil Ptom) 0 each PO DAILY [facility] Last Admin: 09/22/18 08:34 Dose: 1 each Osteo Sheath Ptom 0 each PO TID [facility] Last Admin: 09/22/18 21:14 Dose: 1 each Ubidecarenone [Co (Q10] Ptom) 0 each PO DAILY [facility] Last Admin: 09/22/18 08:27 Dose: 1 each Selegiline [Emsam] 5 (Mg Ptom) 0 each PO 0900,1200 [facility] Last Admin: 09/22/18 11:09 Dose: 0.5 each Ropinirole HCl (Requip) 1 mg PO BEDTIME [facility] Last Admin: 09/22/18 21:13 Dose: 1 mg Sodium Chloride (Saline Flush) 10 ml FLUSH ASDIRECTED PRN PRN Reason: Keep Vein Open Last Admin: 09/20/18 12:42 Dose: 10 ml Warfarin Sodium (Pharmacy To Dose - Warfarin) 0 dose .XX ASDIRECTED PRN PRN Reason: RX TO DOSE WARFARIN Discontinued Medications Amlodipine Besylate (Norvasc) 10 mg PO DAILY [facility] Last Admin: 09/22/18 06:33 Dose: 10 mg Carbidopa/Levodopa (Sinemet 10-100 Mg) 2 tab PO ONETIME ONE Stop: 09/20/18 14:01 Last Admin: 09/20/18 14:14 Dose: 2 tab Enoxaparin Sodium (Lovenox) 60 mg SUBCUT ONETIME ONE Stop: 09/20/18 12:16 Last Admin: 09/20/18 12:37 Dose: 60 mg Enoxaparin Sodium (Lovenox) 60 mg SUBCUT Q12H [facility] Last Admin: 09/22/18 21:13 Dose: 60 mg Non-Formulary Medication (Ubidecarenone [Co Q10]) 60 mg PO DAILY [facility] Selegiline [Emsam] 5 (Mg Ptom) 0 each PO BID [facility] Last Admin: 09/21/18 08:37 Dose: 0.5 each Vit A/Vit C/Vit E/Selen/Cu/Zn/Lutei (Icaps Mv) 2 tab PO DAILY [facility] Last Admin: 09/20/18 17:15 Dose: Not Given Warfarin Sodium (Coumadin) 10 mg PO QPM ONE Stop: 09/20/18 18:01 Last Admin: 09/20/18 17:13 Dose: 10 mg Warfarin Sodium (Coumadin) 2.5 mg PO QPM [facility] Stop: 09/21/18 18:01 Last Admin: 09/21/18 17:32 Dose: 2.5 mg Warfarin Sodium (Coumadin) 2.5 mg PO QPM [facility] Stop: 09/22/18 18:01 Last Admin: 09/22/18 17:25 Dose: 2.5 mg - Exam Quality Assessment: Reports: DVT Prophylaxis General: Reports: Alert, Oriented, Cooperative, No Acute Distress HEENT: Reports: Pupils Equal, Pupils Reactive, EOMI, Mucous Membr. Moist/[place] Neck: Reports: Supple, Trachea Midline, No JVD Lungs: Reports: Clear to Auscultation, Normal Respiratory Effort Cardiovascular: Reports: Regular Rate, Regular Rhythm GI/Abdominal Exam: Normal Bowel Sounds, Soft, No Organomegaly, No Distention, Tender (Very mild pain in groin crease bilaterally with palpitation) (Female) Exam: Deferred Rectal (Female) Exam: Deferred Back Exam: Reports: Normal Inspection, Full Range of Motion Extremities: Normal Inspection, Normal Range of Motion, Non-Tender, No Pedal Edema, Normal Capillary Refill Skin: Reports: Warm, Dry, Intact Neurological: Reports: No New Focal Deficit Psy/Mental Status: Reports: Alert, Normal Affect, Normal Mood
[2018-09-23] MEDS: FISH OIL PO SCH (08:30)
[2018-09-23] MEDS: AREDS II PO SCH (08:30)
[2018-09-23] MEDS: EPA PO SCH (08:30)
[2018-09-23] MEDS: DHA PO SCH (08:30)
[2018-09-23] MEDS: OMEGA PO SCH (08:30)
[2018-09-23] MEDS: SELEGILINE 5 MG PO SCH (08:31)
[2018-09-23] MEDS: [UNRECOGNIZED DRUG - OTHER] PO SCH (08:31)
[2018-09-23] MEDS: UBIDECARENONE PO SCH (08:31)
[2018-09-23] MEDS: Cholecalciferol (Vitamin D3) 1,000 Unit Tab PO SCH (08:32)
[2018-09-23 08:37] VITALS: BP 115/87
--- NOTE | 2018-09-23 09:43 | CR ---
Pelvis: AP view of the pelvis was obtained. Comparison: Previous pelvis and left hip exam of 10/09/15. Joint spaces within both hips are maintained. Slight degenerative sclerosis is noted within the sacroiliac joints, worse on the left side. Bony structures are osteopenic. Nothing acute is appreciated. Impression: 1. Degenerative change within both sacroiliac joints. 2. Osteopenia. Diagnostic code #2
[2018-09-23] MEDS ORDERED: Warfarin 2.5 MG Tab PO SCH (18:00)
== END 2018-09-23 11:30 | disposition home or self-care (01) | DRG 301 ==
LOC: JD.ED 09:46 → JD.MS 12:38
PROVIDERS: ADMIT Internal Medicine; ATTEND Internal Medicine
DX: I82.402 Acute embolism and thrombosis of unspecified deep veins of left lower extremity (principal); G20 Parkinson's disease; H35.30 Unspecified macular degeneration; I10 Essential (primary) hypertension; K21.9 Gastro-esophageal reflux disease without esophagitis; H54.7 Unspecified visual loss; Z79.899 Other long term (current) drug therapy; Z86.718 Personal history of other venous thrombosis and embolism; M79.662 Pain in left lower leg; R60.0 Localized edema; Z87.891 Personal history of nicotine dependence; Z98.891 History of uterine scar from previous surgery; Z88.8 Allergy status to other drugs, medicaments and biological substances
CPT/HCPCS: 36415; 80053; 85007; 85027; 85610; 85730; 86140; 93971; 96372; 99285; J1650; 72170; 72170-26; 80048; 83735; 84100; 84484; 85025; 97110-GO; 97110-GP; 97116-GP; 97161-GP; 97165-GO; 97530-GO; 99284; A9270-GY

== ENCOUNTER 2018-09-26 19:46 | Emergency (ER) | payer MEDICARE, OTHER ==
[2018-09-26 19:56] VITALS: BP 144/72
--- NOTE | 2018-09-26 20:00 | EDM.PDOC ---
ED HPI GENERAL MEDICAL PROBLEM - General Chief Complaint: Lower Extremity Injury/Pain Stated Complaint: blood clot Time Seen by Provider: 09/26/18 19:59 - History of Present Illness INITIAL COMMENTS - FREE TEXT/NARRATIVE: 73-year-old female presents emergency room with worsening left leg swelling. Patient was admitted on the with the DVT in the left leg treated initially with Lovenox and then the decision was made to start her on Coumadin. She's taking 2 and half milligrams a day her INR yesterday as an outpatient was 2.13. Today she's noticing increased swelling in the area she's not having any increased discomfort. She's also complaining of some bruising on her abdominal wall she did receive Lovenox here in the hospital she is not having any chest pain breathing difficulties or increasing shortness of breath. She is not having any fevers or chills and not having any symptoms to suggest a developing illness. The patient has a long history of Parkinson's and she has not noticed any changes in this lately. Left Leg Pain Score (Numeric/FACES): 7 - Related Data Allergies Allergy/AdvReac Type Severity Reaction Status Date / Time sertraline [From Zoloft] AdvReac Tachycardia Verified 09/26/18 09:51 Home Meds: Home Meds Metoprolol Tartrate 12.5 mg PO BID 01/07/16 [History] amLODIPine [Norvasc] 10 mg PO DAILY 01/07/16 [History] rOPINIRole HCl [Ropinirole HCl] 1 mg PO BEDTIME 01/07/16 [History] Acetaminophen/Diphenhydramine [Tylenol Pm Ex-Strength Caplet] 25 - 500 mg PO BEDTIME 09/20/18 [History] Areds Ii. 2 tab PO DAILY 09/20/18 [History] Benztropine [Cogentin] 0.5 mg PO BEDTIME 09/20/18 [History] Carbidopa/Levodopa [Carbidopa-Levo 10-100 mg Odt] 20 - 200 mg PO 6XDAY 09/20/18 [History] Cholecalciferol (Vitamin D3) [D3-2000] 2,000 units PO DAILY 09/20/18 [History] Cyanocobalamin (Vitamin B12) [Vitamin B12] 1 tab PO ASDIRECTED 09/20/18 [History ] Dextran 70/Hypromellose [Artificial Tears] 1 drop OP Q4HR 09/20/18 [History] [place]-3/DHA/Epa/Fish Oil [[place]-3 Fish Oil 1,000 MG Sfgl] 2,000 mg PO DAILY [History] Osteo Sheath. 1 tab PO TID 09/20/18 [History] Selegiline [Emsam] 2.5 mg PO BID 09/20/18 [History] Ubidecarenone [Co Q10] 60 mg PO DAILY 09/20/18 [History] Warfarin [Coumadin] 2.5 mg PO DAILY #15 tab 09/23/18 [Rx] Non-Formulary Medication [NF Drug] 2 cap PO DAILY 09/26/18 [History] Warfarin Sodium [Coumadin] 3 mg PO Q24H #15 tablet 09/26/18 [Rx] Past Medical History HEENT History: Reports: Impaired Vision, Macular Degeneration Cardiovascular History: Reports: Blood Clots/VTE/DVT, Hypertension Gastrointestinal History: Reports: GERD GRINDER HARDBOARD History: Reports: , Other (See Below) Other GRINDER HARDBOARD History: C section Neurological History: Reports: Parkinson's Other Neuro History: 14yrs - Infectious Disease History Infectious Disease History: Reports: Chicken Pox, Measles, Mumps - Past Surgical History Musculoskeletal Surgical History: Reports: Shoulder Surgery Social & Family History - Family History Family Medical History: Noncontributory - Caffeine Use Caffeine Use: Reports: None Review of Systems - Review of Systems Review Of Systems: See Below Constitutional: Reports: No Symptoms Mouth/Throat: Reports: No Symptoms Respiratory: Reports: No Symptoms Cardiovascular: Reports: No Symptoms GI/Abdominal: Reports: No Symptoms Genitourinary: Reports: No Symptoms Musculoskeletal: Reports: No Symptoms Skin: Reports: No Symptoms Neurological: Reports: No Symptoms Psychiatric: Reports: No Symptoms ED EXAM, GENERAL - Physical Exam Exam: See Below Exam Limited By: No Limitations General Appearance: Alert, No Apparent Distress Respiratory/Chest: No Respiratory Distress, Lungs Clear, Normal Breath Sounds Cardiovascular: Regular Rate, Rhythm, No Edema, No Murmur GI/Abdominal: Normal Bowel Sounds, Soft, Other (She has some mild discomfort around her bruising she has an area of ecchymosis suprapubically. With minimal discomfort this does not seem to be related to any the injection sites of Lovenox.) Extremities: Other (Examination left lower extremity shows some discomfort along the course of the venous system mild swelling compared to the right especially in the thigh not significant swelling in the calf.) Course - Vital Signs Last Recorded V/S: Last Vital Signs Temp 36.5 C 09/26/18 19:54 Pulse 106 H 09/26/18 19:54 Resp 18 09/26/18 19:54 BP 144/72 H 09/26/18 19:54 Pulse Ox 95 09/26/18 19:54 - Orders/Labs/Meds Orders: Active Orders 24 hr Category Date Time Status VL Duplex Lwr Ext Veins Ltd Lt [US] Stat Exams 09/26/18 20:22 Taken Labs: Laboratory Tests 09/26/18 09/26/18 Range/Units 20:30 20:30 PT 22.4 H (9.5-12.1) SECONDS INR 2.08 Sodium 137 (136-145) mEq/L Potassium 4.1 (3.5-5.1) mEq/L Chloride 103 (98-107) mEq/L Carbon Dioxide 26 (21-32) mEq/L Anion Gap 12.1 (5-15) BUN 16 (7-18) mg/dL Creatinine 0.9 (0.55-1.02) mg/dL Est Cr Clr Drug Dosing 43.37 mL/min Estimated GFR (MDRD) > 60 (>60) mL/min BUN/Creatinine Ratio 17.8 (14-18) Glucose 118 H (83-115) mg/dL Calcium 9.0 (8.5-10.1) mg/dL Total Bilirubin 0.5 (0.2-1.0) mg/dL AST 40 H (15-37) U/L ALT 34 (14-59) U/L Alkaline Phosphatase 96 (46-116) U/L C-Reactive Protein 4.9 H* (<1.0) mg/dL Total Protein 6.8 (6.4-8.2) g/dl Albumin 3.2 L (3.4-5.0) g/dl Globulin 3.6 gm/dL Albumin/Globulin Ratio 0.9 L (1-2) Meds: Medications Discontinued Medications Generic Name Dose Route Start Last Admin Trade Name Freq PRN Reason Stop Dose Admin Warfarin Sodium 0.5 mg 09/26/18 22:32 Coumadin PO 09/26/18 22:33 ONETIME ONE - Re-Assessments/Exams Free Text/Narrative Re-Assessment/Exam: 09/26/18 22:47 Patient was evaluated she's not had any chest pain chest pressure breathing difficulties or shortness of breath. Of concern initially as a pulse of 106 this did come down to get around 100. I just checked it and it was about 95. I did discuss the possible implications of this with regards to DVT with the patient and her and offered to do a CTA however she is therapeutic on her Coumadin and the treatment is already in place the decision was made jointly not to pursue a CTA. The patient had a lower leg Doppler that did not show worsening clot it is felt a lot of her increasing swelling and she's noticing today secondary to regional changes with the DVT at this time. Her INR is therapeutic at 2.08 albeit at the lower end of therapeutic we are not certain which way this is trending however she was a little higher on Thursday when her INR was checked last at this point we will increase her Coumadin to 3 mg a day from 2.5 she does not need to return tomorrow to have this rechecked but should discuss the changes with pharmacy who was watching her INRs. Departure - Departure Time of Disposition: 22:50 Disposition: Home, Self-Care 01 Clinical Impression: Left leg DVT - Discharge Information Prescriptions: Warfarin Sodium [Coumadin] 3 mg PO Q24H #15 tablet Referrals: Mala Swenson PA-C [Primary Care Provider] - Forms: ED Department Discharge Additional Instructions: Return to the emergency room with any questions problems worsening symptoms. Follow-up with your regular provider early this week. Your INR, this is what we use to measure the effectiveness of the Coumadin you' re taking, is therapeutic but it is at the low range of been therapeutic and we are not certain which way this is trending with the short time that you've been on it. Therefore we will increase her Coumadin to 3 mg a day. Get the prescription for this filled on Thursday in the meantime we've given you a half milligram of Coumadin in the emergency room in addition to the 2.5 you took earlier this evening, take the other half a pill tomorrow at the usual time in addition to what you normally take. The swelling you noticed in her leg is probably normal healing response but we would be happy to reevaluated at any time that you get concerned. The bruising on your abdominal wall is probably secondary to the injection she received in the hospital and no treatment is needed for this at this time. - My Orders Last 24 Hours: My Active Orders 09/26/18 20:22 VL Duplex Lwr Ext Veins Ltd Lt [US] Stat - Assessment/Plan Last 24 Hours: My Active Orders 09/26/18 20:22 VL Duplex Lwr Ext Veins Ltd Lt [US] Stat
--- NOTE | 2018-09-28 09:30 | US ---
Left lower extremity deep venous ultrasound: Duplex and color flow imaging was obtained of the left common femoral, proximal greater saphenous, superficial femoral, popliteal, posterior tibial peroneal veins. Right common femoral vein was also evaluated. Comparison: Previous left lower extremity deep venous ultrasound of 09/20/18. Findings: Occluding thrombus noted throughout the common femoral vein, superficial femoral, popliteal, posterior tibial and peroneal veins. Incomplete clot seen within the greater saphenous vein. Right common femoral vein is patent. Impression: 1. Extensive deep venous thrombosis within the left lower extremity. Findings are similar to previous study. Diagnostic code #5 I agree with preliminary report from [facility], finalized on 09/26/18, 11:22 PM Central Time
== END 2018-09-26 23:15 | disposition home or self-care (01) ==
LOC: JD.ED 19:46
DX: I82.412 Acute embolism and thrombosis of left femoral vein (principal); I82.432 Acute embolism and thrombosis of left popliteal vein; I10 Essential (primary) hypertension; K21.9 Gastro-esophageal reflux disease without esophagitis; Z88.8 Allergy status to other drugs, medicaments and biological substances; Z79.899 Other long term (current) drug therapy; Z79.01 Long term (current) use of anticoagulants
CPT/HCPCS: 36415; 80053; 85610; 86140; 93971; 99284; A9270; 99283